=== PATIENT | male | born 1960 | race Caucasian/White ===

== ENCOUNTER 2017-09-17 02:20 | Emergency (ER) | payer OTHER ==
[~2017-09-17] VITALS: Ht 198.1 cm; Wt 95.3 kg
[2017-09-17] MEDS ORDERED: IBUPROFEN 800800 M1 PO (02:32)
[2017-09-17] MEDS ORDERED: NEURONTIN600 MG PO (02:32)
[2017-09-17] MEDS ORDERED: PROZAC20 MG PO (02:32)
[2017-09-17] MEDS ORDERED: HYDROCODONE-AP1 EAC6 PO (03:53)
[2017-09-17] MEDS ORDERED: AUGMENTIN 875-1 EACH PO (03:53)
[2017-09-17 04:02] VITALS: BP 144/80
== END 2017-09-17 04:03 | disposition home or self-care (01) ==
LOC: M.ERS 02:20
DX: S61.210A Laceration without foreign body of right index finger without damage to nail, initial encounter (principal); S61.212A Laceration without foreign body of right middle finger without damage to nail, initial encounter; Z88.6 Allergy status to analgesic agent; Z88.5 Allergy status to narcotic agent; W29.2XXA Contact with other powered household machinery, initial encounter; Y93.89 Activity, other specified; Y92.59 Other trade areas as the place of occurrence of the external cause; Y99.0 Civilian activity done for income or pay